=== PATIENT | female | born 1995 | race Caucasian/White ===

== ENCOUNTER 2019-03-04 21:39 | Emergency (ER) | payer OTHER ==
[~2019-03-04] VITALS: Wt 56.7 kg
[2019-03-04 21:43] VITALS: BP 123/69; PULSE 86; RESP 22
[2019-03-04] MEDS ORDERED: ACETAMINOPHEN 325 MG TAB PO STA (23:18)
--- NOTE | 2019-03-05 03:28 | ERD ---
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 'light' cramping. 18wks . HPI 23-year-old female who is G2, , last menstrual cycle 10/20/2018 presents to the emergency department complaining of intermittent vaginal spotting which began earlier today. She is reportedly 18 weeks . She has had a normal ultrasound during this . Cramping is rated 4/10 in severity. She denies any fevers, chills, dysuria, abdominal pain, or other symptoms at this time. ROS All systems reviewed and are negative except as per history of present illness. Allergies Allergies: Coded Allergies: No Known Allergy (Unverified , 03/04/19) PMhx/Soc Medical and Surgical Hx: pt denies Medical Hx, pt denies Surgical Hx Hx Alcohol Use: No Hx Substance Use: No Hx Tobacco Use: No Smoking Status: Never smoker FmHx Family History: No diabetes Physical Exam Vitals Vital Signs Date Temp Pulse Resp B/P (MAP) Pulse Ox O2 O2 Flow FiO2 Time Delivery Rate 03/04/19 99.6 86 22 123/69 98 21:43 (87) Physical Exam Const: No acute distress Head: Atraumatic Eyes: Normal Conjunctiva ENT: Normal External Ears, Nose and Mouth. Neck: Full range of motion. No meningismus. Resp: Clear to auscultation bilaterally Cardio: Regular rate and rhythm, no murmurs Abd: Soft, non tender, non distended. Normal bowel sounds Skin: No petechiae or rashes Back: No midline or flank tenderness Ext: No cyanosis, or edema Neur: Awake and alert Psych: Normal Mood and Affect Result Diagram: 03/04/19 2340 Results 24 hrs Laboratory Tests Test 03/04/19 23:40 White Blood Count 10.7 10^3/ul Red Blood Count 3.41 10^6/ul Hemoglobin 11.1 g/dl Hematocrit 32.9 % Mean Corpuscular Volume 96.5 fl Mean Corpuscular Hemoglobin 32.6 pg Mean Corpuscular Hemoglobin Concent 33.7 g/dl Red Cell Distribution Width 12.2 % Platelet Count 291 10^3/UL Mean Platelet Volume 9.7 fl Immature Granulocytes % 1.100 % Neutrophils % 62.0 % Lymphocytes % 25.0 % Monocytes % 8.9 % Eosinophils % 2.6 % Basophils % 0.4 % Nucleated Red Blood Cells % 0.0 /100WBC Immature Granulocytes # 0.120 10^3/ul Neutrophils # 6.6 10^3/ul Lymphocytes # 2.7 10^3/ul Monocytes # 1.0 10^3/ul Eosinophils # 0.3 10^3/ul Basophils # 0.0 10^3/ul Nucleated Red Blood Cells # 0.0 10^3/ul Urine Color YELLOW Urine Clarity SLIGHTLY CLOUDY Urine pH 6.0 Urine Specific [place] 1.013 Urine Ketones NEGATIVE mg/dL Urine Nitrite NEGATIVE mg/dL Urine Bilirubin NEGATIVE mg/dL Urine Urobilinogen NEGATIVE mg/dL Urine Leukocyte Esterase 1+ Andrea/ul Urine Microscopic RBC 0 /HPF Urine Microscopic WBC 14 /HPF Urine Squamous Epithelial Cells FEW /HPF Urine Bacteria FEW /HPF Urine Yeast (Budding) FEW /HPF Urine Hemoglobin 1+ mg/dL Urine Glucose 3+ mg/dL Urine Total Protein NEGATIVE mg/dl Beta HCG, Quantitative 06968.0 mIU/ml Current Medications Medications Dose Sig/Nelson Start Time Status Last (Trade) Ordered Route PRN Stop Time Admin Dose Reason Admin 650 mg ONCE STAT 03/04/19 DC Acetaminophen PO 23:18 (Tylenol 03/04/19 23:21 Tab) [place] [address] Radiology Main Line: [phone] DIAGNOSTIC IMAGING REPORT Patient: ALFIE ROMAN : 1995 Age: 23 Sex: F MR #: [id number] DOS: 03/05/19 0000 Ordering MD: SUZY MONROE PA-C Location: [facility] Room/Bed: PROCEDURE: US OB CLINICAL INDICATION: . Vaginal bleeding. TECHNIQUE: Multiple transabdominal sonographic images of the pelvis and gravid uterus were obtained. The images were reviewed on a PACS workstation. COMPARISON: No prior studies are available for comparison. FINDINGS: Gestation: Single live intrauterine gestation. Cardiac activity: 146 beats per minute. Presentation: Vertex. Placenta: Location: Posterior Amniotic Fluid: MVP = 4.0 cm Measurements: BPD = 3.98 cm, 18 weeks 1 day HC = 15.3 cm, 18 weeks 2 days AC = 14 cm, 19 weeks 3 days FL = 2.97 cm, 19 weeks 1 day The ratio of the femur length to head circumference is slightly elevated at 19.5 (normal range 16.01 - 18.21). Gestational Age: AUA estimated gestational age: 18 weeks 5 days LMP estimated gestational age: 18 weeks 4 days AUA estimated date of delivery: 08/01/2019 The EFW = 276 g g, 79th %ile based on LMP age. IMPRESSION: 1. Single live intrauterine gestation of 18 weeks 5 days by ultrasound criteria. 2. Estimated date of delivery of 08/01/2019. 3. There is slightly elevated ratio of the femur length to head circumference. Recommend follow-up to rule out IUGR. RPTAT: [facility] .Trey Velasquez MD, MD Date Time Electronically viewed and signed by .Trey Velasquez MD, on 03/05/2019 01:07 .K/ CC: SUZY MONROE PA-C [id number] Procedures/MDM 23-year-old female presenting to the emergency department complaining of vaginal spotting starting today. She is reportedly 18 weeks . Ultrasound showed single live intrauterine with heart tones present. Beta hCG was consistent with term of . Urinalysis showed 1+ leukocyte which is likely secondary to contamination as the patient had no urinary symptoms. No evidence to suggest ectopic , tubo-ovarian abscess, ovarian torsion, or other emergencies. Patient advised to follow-up with her METROLOGIST physician within the next 24 to 48 hours and return to the department immediately for any new or worsening or concerning symptoms. She was in agreement and her questions and concerns were addressed prior to discharge. Departure Diagnosis: Primary Impression: Vaginal bleeding in patient at less than 20 weeks ges... Condition: Fair Patient Instructions: Bleeding During Early Additional Instructions: SPECIALIST: YOU HAVE A MEDICAL CONDITION WHICH REQUIRES YOU TO SEE A SPECIALIST WITHIN THE NEXT 1-2 DAYS. PLEASE FOLLOW UP WITH YOUR PRIMARY PHYSICIAN FOR REFFERAL.IF YOU DO NOT HAVE A PRIMARY CARE PHYSICIAN AND/OR YOU CAN NOT AFFORD TO SEE A PHYSICIAN THE FOLLOWING RESOURCES HAVE BEEN SUPPLIED TO YOU. IT IS YOUR RESPONSIBILITY TO BE SEEN BY THE SPECIALIST: SUZY RODRIGUEZ PA-C March 05, 2019 03:28
== END 2019-03-05 01:18 | disposition home or self-care (01) ==
LOC: FTE 21:39
DX: O20.9 Hemorrhage in early pregnancy, unspecified (principal); Z3A.18 18 weeks gestation of pregnancy
CPT/HCPCS: 36415; 76805; 81001; 84702; 85025; 86900; 86901; Z7502